=== PATIENT | male | born 1980 | race Caucasian/White ===

== ENCOUNTER 2016-11-04 15:57 | Emergency (ER) | payer BC ==
[2016-11-04 16:00] VITALS: BP 136/83; BMI 28.3
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
== END 2016-11-04 17:06 | disposition home or self-care (01) ==
LOC: ER 16:15
DX: S60.052A Contusion of left little finger without damage to nail, initial encounter (principal); W23.0XXA Caught, crushed, jammed, or pinched between moving objects, initial encounter; Y92.9 Unspecified place or not applicable
CPT/HCPCS: 73130; 99282